=== PATIENT | female | born 1990 | race Two or more races ===

== ENCOUNTER 2022-03-02 16:14 | Emergency (ER) | payer MEDICAID, OTHER ==
[~2022-03-02] VITALS: Ht 160 cm; Wt 154.7 kg
[2022-03-02 16:40] VITALS: BP 145/84
[2022-03-02] MEDS ORDERED: KETOROLAC TROMETH 60MG/2ML VIAL IM ONE (19:00)
[2022-03-02] MEDS ORDERED: IBUP800T26 PO (19:46)
== END 2022-03-02 19:51 | disposition home or self-care (01) ==
LOC: ER 16:14
DX: M54.50 Low back pain, unspecified (principal); J44.9 Chronic obstructive pulmonary disease, unspecified
CPT/HCPCS: 72100; 96372; 99283; J1885